=== PATIENT | male | born 1935 | race African-American/Black ===

== ENCOUNTER → 2017-02-10 | Outpatient (CLI) | payer OTHER, MEDICARE | END | disposition home or self-care (01) | LOC: NUC 01-27 11:00 | DX: C79.51 Secondary malignant neoplasm of bone (principal); R93.7 Abnormal findings on diagnostic imaging of other parts of musculoskeletal system; C61 Malignant neoplasm of prostate | CPT/HCPCS: 78306; A9503 ==

== ENCOUNTER 2017-08-07 04:11 | Inpatient (IN) | payer OTHER, MEDICARE ==
[~2017-08-07] VITALS: Ht 176.5 cm; Wt 70.1 kg
[2017-08-07] VITALS (14 sets, daily range): BP systolic 93–142; BP diastolic 56–99
[2017-08-07 04:51] LABS: APPEARANCE CLOUDY ((CLEAR)); BILIRUBIN NEGATIVE; BLOOD NEGATIVE; COLOR AMBER ((YELLOW)); GLUCOSE (STRIP) >=500; KETONES 5; LEUKOCYTES NEGATIVE; NITRITE NEGATIVE; PROTEIN (STRIP) 30; SPECIFIC GRAVITY 1.022 (1.000-1.030); UROBILINOGEN 0.2 MG/DL (0.2-1.0)
[2017-08-07 05:23] LABS: ALBUMIN 3.4 g/dL (3.2-4.8); CHLORIDE 98 mEq/L (99-109); SODIUM 143 mEq/L (136-147)
[2017-08-07 05:24] LABS: MAGNESIUM 2.2 mg/dL (1.3-2.7)
[2017-08-07 05:26] LABS: GLUCOSE 145 mg/dL (70-99); TOTAL PROTEIN 6.1 g/dL (6.4-8.3)
[2017-08-07 05:28] LABS: TOTAL BILIRUBIN 0.3 mg/dL (0.0-1.0)
[2017-08-07 05:29] LABS: ALKALINE PHOSPHATASE 62 IU/L (3-129)
[2017-08-07 05:30] LABS: CREATININE 0.7 mg/dL (0.6-1.3); GFR ESTIMATE (CALCULATED) > 59 mL/min/ (58.99-99999)
[2017-08-07 05:31] LABS: AST (GOT) 31 IU/L (2-34); UREA NITROGEN (BUN) 23 mg/dL (9-23)
[2017-08-07 05:33] LABS: ALT (GPT) 15 IU/L (3-49)
[2017-08-07 05:35] LABS: TROP-I INTERPRETATION NEGATIVE; TROPONIN-I 0.02 ng/mL (0.0-0.30)
[2017-08-07 05:39] LABS: BACTERIA 3+ /HPF; EPITHELIAL CELLS NONE SEEN /HPF; MUCUS NONE SEEN /LPF; UCUL ADDED? YES; WHITE BLOOD CELLS 0-5 /HPF (0-5)
[2017-08-07 06:18] LABS: CARBOXY HGB 0.9 % (0-5); METHEMOGLOBIN 0.7 % (0-1.5); PCO2 > 126 mm Hg (35-45); PO2 169 mm Hg (80-100)
[2017-08-07 06:19] LABS: COMMENTS - BLOOD GASES A+C+; DEVICE NC; O2 FLOW 4 L/MIN; SITE LR; TOTAL RESP RATE 22 resp/min; pH 7.13 (7.35-7.45)
[2017-08-07 06:28] LABS: BASOPHIL (%) 0.3 % (0-1); EOSINOPHIL (%) 0.1 % (0-5); HEMATOCRIT 35.2 % (38.0-50.0); HEMOGLOBIN 11.1 G/DL (12.5-16.6); IMMATURE GRANULOCYTE (%) 0.8 % (0.0-0.7); LYMPHOCYTE COUNT 0.5 K/uL (1.0-2.8); MCHC 31.5 G/DL (30.0-36.0); MCV 104.8 FL (86-99); MONOCYTE (%) 5.3 % (3-12); MONOCYTE COUNT 0.4 K/uL (0-0.8); NEUTROPHIL (%) 87.5 % (45-76); NEUTROPHIL COUNT 6.6 K/uL (1.8-6.4); PLATELET COUNT 134 K/uL (156-360); RBC DIS.WIDTH-CV 12.8 % (11.8-14.6); RBC DIS.WIDTH-SD 49.4 % (39-53); RED BLOOD COUNT 3.36 M/uL (4.00-5.50); WHITE BLOOD COUNT 7.5 K/uL (4.1-10.2)
[2017-08-07 07:30] LABS: BASE EXCESS 9.1 mEq/L (-3 to +3); BICARBONATE 39.6 mEq/L (22-26); CARBOXY HGB 0.5 % (0-5); METHEMOGLOBIN 0.8 % (0-1.5); PCO2 99 mm Hg (35-45); PO2 435 mm Hg (80-100); SITE RR; pH 7.21 (7.35-7.45)
[2017-08-07 07:31] LABS: COMMENTS - BLOOD GASES A+C+; DEVICE 980; FI02 100 %; MECHANICAL RATE 16 resp/min; MODE AC; PEEP 5 CM/H20; TIDAL VOLUME 500 ML; TOTAL RESP RATE 18 resp/min
[2017-08-07 07:32] LABS: INTER. NORMALIZED RATIO 0.9
[2017-08-07 07:35] LABS: PTT 28.7 SEC (25-37)
[2017-08-07] MEDS ORDERED: ACETAMINOPHEN-1 EAC3 PO (09:18)
[2017-08-07] MEDS ORDERED: ADVAIR HFA120 INHAL1 IH (09:18)
[2017-08-07] MEDS ORDERED: ASPIRIN81 M2 PO (09:19)
[2017-08-07] MEDS ORDERED: COREG3.125 M1 PO (09:20)
[2017-08-07] MEDS ORDERED: VITAMIN D31000 UNIT PO (09:20)
[2017-08-07] MEDS ORDERED: FAMOTIDINE20 MG PO (09:21)
[2017-08-07] MEDS ORDERED: FLOMAX0.4 MG PO (09:22)
[2017-08-07] MEDS ORDERED: DUONEB 2.5-0.5 M3 ML AEROSOL (09:24)
[2017-08-07] MEDS ORDERED: MONTELUKAST SOD10 MG PO (09:25)
[2017-08-07] MEDS ORDERED: LASIX40 MG PO (09:25)
[2017-08-07] MEDS ORDERED: MULTIVITAMIN1 EAC2 PO (09:26)
[2017-08-07] MEDS ORDERED: PREDNISONE5 MG PO (09:28)
[2017-08-07] MEDS ORDERED: SYMBICORT60 INHALAT IH (09:29)
[2017-08-07] MEDS ORDERED: SPIRIVA1 INHALATI IH (09:29)
[2017-08-07] MEDS ORDERED: VENTOLIN HFA18 GM IH (09:30)
[2017-08-07] MEDS ORDERED: GUAIFENESIN DM236 ML PO (09:33)
[2017-08-07 13:20] LABS: TRIGLYCERIDES 92 MG/DL (Normal: <150)
[2017-08-07 14:49] LABS: BASE EXCESS 7.5 mEq/L (-3 to +3); CARBOXY HGB 0.6 % (0-5); METHEMOGLOBIN 0.7 % (0-1.5)
[2017-08-07 14:50] LABS: BICARBONATE 31.1 mEq/L (22-26); COMMENTS - BLOOD GASES +A +C; PCO2 39 mm Hg (35-45); PO2 67 mm Hg (80-100); SITE RR; pH 7.51 (7.35-7.45)
[2017-08-07 14:51] LABS: DEVICE 980; FI02 30 %; MECHANICAL RATE 20 resp/min; MODE AC; PEEP 5 CM/H20; TIDAL VOLUME 500 ML; TOTAL RESP RATE 20 resp/min
[2017-08-07 16:25] LABS: BASE EXCESS 6.9 mEq/L (-3 to +3); BICARBONATE 31.3 mEq/L (22-26); CARBOXY HGB 0.6 % (0-5); PCO2 43 mm Hg (35-45); PO2 58 mm Hg (80-100); SITE LR; pH 7.47 (7.35-7.45)
[2017-08-07 16:26] LABS: COMMENTS - BLOOD GASES +A +C; DEVICE PB980; FI02 30 %; MECHANICAL RATE 17 resp/min; MODE AC; PEEP 5 CM/H20; TIDAL VOLUME 500 ML; TOTAL RESP RATE 17 resp/min
[2017-08-08] VITALS (24 sets, daily range): BP systolic 94–153; BP diastolic 58–84
[2017-08-08 05:15] LABS: HEMATOCRIT 27.8 % (38.0-50.0); HEMOGLOBIN 9.2 G/DL (12.5-16.6); MCH 32.6 PG (29.0-34.0); MCHC 33.1 G/DL (30.0-36.0); MCV 98.6 FL (86-99); PLATELET COUNT 129 K/uL (156-360); RBC DIS.WIDTH-CV 13.1 % (11.8-14.6); RED BLOOD COUNT 2.82 M/uL (4.00-5.50); WHITE BLOOD COUNT 5.1 K/uL (4.1-10.2)
[2017-08-08 05:34] LABS: CHLORIDE 100 MEQ/L (99-109); CREATININE 0.8 MG/DL (0.6-1.3); GFR ESTIMATE (CALCULATED) > 59 mL/min/ (58.99-99999); GLUCOSE 120 mg/dL (70-99); SODIUM 137 MEQ/L (136-147); UREA NITROGEN (BUN) 24 mg/dL (9-23)
[2017-08-08 05:47] LABS: POTASSIUM 3.1 MEQ/L (3.7-5.4)
[2017-08-08 09:51] LABS: BASE EXCESS 8.9 mEq/L (-3 to +3); BICARBONATE 34.1 mEq/L (22-26); CARBOXY HGB 0.4 % (0-5); COMMENTS - BLOOD GASES +C; DEVICE PB980; FI02 30 %; MECHANICAL RATE 15 resp/min; MODE AC; PCO2 49 mm Hg (35-45); PEEP 5 CM/H20; PO2 67 mm Hg (80-100); SITE LR +A; TIDAL VOLUME 500 ML; TOTAL RESP RATE 15 resp/min; pH 7.45 (7.35-7.45)
[2017-08-08 11:00] LABS: BASE EXCESS 10.6 mEq/L (-3 to +3); BICARBONATE 36.5 mEq/L (22-26); CARBOXY HGB 0.4 % (0-5); METHEMOGLOBIN 1.2 % (0-1.5); PO2 66 mm Hg (80-100); pH 7.43 (7.35-7.45)
[2017-08-08 11:01] LABS: COMMENTS - BLOOD GASES +C; DEVICE PB980; FI02 30 %; MODE SPONT; PCO2 55 mm Hg (35-45); PRES. SUPPORT 5 CM/H2O; SITE RR +A; TOTAL RESP RATE 21 resp/min
[2017-08-08 11:02] LABS: PEEP 5 CM/H20
[2017-08-09] VITALS (24 sets, daily range): BP systolic 107–163; BP diastolic 59–99
[2017-08-09 05:00] LABS: BASOPHIL (%) 0.3 % (0-1); EOSINOPHIL (%) 0 % (0-5); HEMATOCRIT 32.5 % (38.0-50.0); HEMOGLOBIN 10.6 G/DL (12.5-16.6); IMMATURE GRANULOCYTE (%) 0.3 % (0.0-0.7); LYMPHOCYTE (%) 13.5 % (15-42); LYMPHOCYTE COUNT 0.9 K/uL (1.0-2.8); MCH 33.4 PG (29.0-34.0); MCHC 32.6 G/DL (30.0-36.0); MCV 102.5 FL (86-99); MONOCYTE (%) 9.1 % (3-12); MONOCYTE COUNT 0.6 K/uL (0-0.8); NEUTROPHIL (%) 76.8 % (45-76); NEUTROPHIL COUNT 5.2 K/uL (1.8-6.4); PLATELET COUNT 155 K/uL (156-360); RBC DIS.WIDTH-CV 13.7 % (11.8-14.6); RBC DIS.WIDTH-SD 51.2 % (39-53); RED BLOOD COUNT 3.17 M/uL (4.00-5.50); WHITE BLOOD COUNT 6.8 K/uL (4.1-10.2)
[2017-08-09 06:25] LABS: CHLORIDE 107 MEQ/L (99-109); CREATININE 0.9 MG/DL (0.6-1.3); GFR ESTIMATE (CALCULATED) > 59 mL/min/ (58.99-99999); GLUCOSE 89 mg/dL (70-99); MAGNESIUM 2.2 mg/dl (1.3-2.7); PHOSPHORUS 2.4 mg/dL (2.5-4.9); POTASSIUM 3.6 MEQ/L (3.7-5.4); SODIUM 152 MEQ/L (136-147); UREA NITROGEN (BUN) 23 mg/dL (9-23)
[2017-08-09 13:10] LABS: BASE EXCESS 14.9 mEq/L (-3 to +3); BICARBONATE 43.5 mEq/L (22-26); CARBOXY HGB 1.1 % (0-5); DEVICE CANNULA; METHEMOGLOBIN 1.3 % (0-1.5); O2 FLOW 1 L/MIN; PCO2 77 mm Hg (35-45); PO2 47 mm Hg (80-100); SITE LR; pH 7.36 (7.35-7.45)
[2017-08-09 13:11] LABS: COMMENTS - BLOOD GASES NAC+; TOTAL RESP RATE 26 resp/min
[2017-08-10] VITALS (23 sets, daily range): BP systolic 124–161; BP diastolic 66–112
[2017-08-10 05:54] LABS: BASOPHIL (%) 0.2 % (0-1); EOSINOPHIL (%) 0 % (0-5); HEMATOCRIT 34.6 % (38.0-50.0); IMMATURE GRANULOCYTE (%) 0.9 % (0.0-0.7); LYMPHOCYTE (%) 6.8 % (15-42); LYMPHOCYTE COUNT 0.4 K/uL (1.0-2.8); MCH 31.7 PG (29.0-34.0); MCHC 31.8 G/DL (30.0-36.0); MCV 99.7 FL (86-99); MONOCYTE (%) 2.4 % (3-12); MONOCYTE COUNT 0.1 K/uL (0-0.8); NEUTROPHIL (%) 89.7 % (45-76); NEUTROPHIL COUNT 5.2 K/uL (1.8-6.4); PLATELET COUNT 196 K/uL (156-360); RBC DIS.WIDTH-CV 13.2 % (11.8-14.6); RBC DIS.WIDTH-SD 48.6 % (39-53); RED BLOOD COUNT 3.47 M/uL (4.00-5.50); WHITE BLOOD COUNT 5.7 K/uL (4.1-10.2)
[2017-08-10 06:11] LABS: CHLORIDE 97 MEQ/L (99-109); CREATININE 0.9 MG/DL (0.6-1.3); GFR ESTIMATE (CALCULATED) > 59 mL/min/ (58.99-99999); POTASSIUM 3.3 MEQ/L (3.7-5.4); SODIUM 147 MEQ/L (136-147); UREA NITROGEN (BUN) 27 mg/dL (9-23)
[2017-08-10 06:13] LABS: GLUCOSE 145 mg/dL (70-99)
[2017-08-11] VITALS (12 sets, daily range): BP systolic 115–145; BP diastolic 69–97
[2017-08-11] MEDS ORDERED: TYLENOL WITH C1 EACH PO (12:31)
[2017-08-11] MEDS ORDERED: COLACE100 MG PO (12:33)
[2017-08-11] MEDS ORDERED: ZYTIGA250 MG PO (12:34)
[2017-08-12 06:48] LABS: BASOPHIL (%) 0.1 % (0-1); EOSINOPHIL (%) 0 % (0-5); HEMATOCRIT 34.1 % (38.0-50.0); HEMOGLOBIN 10.9 G/DL (12.5-16.6); LYMPHOCYTE (%) 5.1 % (15-42); LYMPHOCYTE COUNT 0.3 K/uL (1.0-2.8); MCH 33.4 PG (29.0-34.0); MONOCYTE (%) 3.7 % (3-12); MONOCYTE COUNT 0.3 K/uL (0-0.8); NEUTROPHIL (%) 90.1 % (45-76); PLATELET COUNT 196 K/uL (156-360); RBC DIS.WIDTH-CV 13.2 % (11.8-14.6); RBC DIS.WIDTH-SD 51.2 % (39-53); RED BLOOD COUNT 3.26 M/uL (4.00-5.50); WHITE BLOOD COUNT 6.7 K/uL (4.1-10.2)
[2017-08-12 06:49] LABS: MCV 104.6 FL (86-99)
[2017-08-12 07:16] LABS: CHLORIDE 96 MEQ/L (99-109); CREATININE 0.9 MG/DL (0.6-1.3); GFR ESTIMATE (CALCULATED) > 59 mL/min/ (58.99-99999); GLUCOSE 197 mg/dL (70-99); SODIUM 149 MEQ/L (136-147); UREA NITROGEN (BUN) 22 mg/dL (9-23)
[2017-08-12 07:27] LABS: CARBON DIOXIDE (BICARBONATE) > 40.0 MEQ/L (20-31); POTASSIUM 4.3 MEQ/L (3.7-5.4)
[2017-08-12 07:44] VITALS: BP 129/70
[2017-08-12 16:07] VITALS: BP 134/73
[2017-08-12 21:15] LABS: BASE EXCESS 22.8 mEq/L (-3 to +3); BICARBONATE 52.5 mEq/L (22-26); CARBOXY HGB 0.8 % (0-5); COMMENTS - BLOOD GASES A+C+; METHEMOGLOBIN 1.3 % (0-1.5); O2 FLOW 2 L/MIN; PCO2 93 mm Hg (35-45); PO2 71 mm Hg (80-100); SITE RA; pH 7.36 (7.35-7.45)
[2017-08-12 21:16] LABS: PEEP 5 CM/H20; PRES. SUPPORT 13 CM/H2O; TOTAL RESP RATE 24 resp/min
[2017-08-13 00:05] VITALS: BP 136/85
[2017-08-13 04:29] VITALS: BP 116/69
[2017-08-13 06:53] LABS: HEMATOCRIT 33.2 % (38.0-50.0); HEMOGLOBIN 10.2 G/DL (12.5-16.6); MCH 32.3 PG (29.0-34.0); MCHC 30.7 G/DL (30.0-36.0); MCV 105.1 FL (86-99); PLATELET COUNT 214 K/uL (156-360); RBC DIS.WIDTH-CV 13.2 % (11.8-14.6); RBC DIS.WIDTH-SD 50.8 % (39-53); RED BLOOD COUNT 3.16 M/uL (4.00-5.50); WHITE BLOOD COUNT 7.1 K/uL (4.1-10.2)
[2017-08-13 07:26] LABS: BASOPHIL (%) 0.3 % (0-1); CHLORIDE 99 MEQ/L (99-109); CREATININE 0.8 MG/DL (0.6-1.3); EOSINOPHIL (%) 0 % (0-5); GFR ESTIMATE (CALCULATED) > 59 mL/min/ (58.99-99999); GLUCOSE 149 mg/dL (70-99); LYMPHOCYTE (%) 5.5 % (15-42); LYMPHOCYTE COUNT 0.4 K/uL (1.0-2.8); MONOCYTE COUNT 0.4 K/uL (0-0.8); NEUTROPHIL (%) 86.2 % (45-76); NEUTROPHIL COUNT 6.1 K/uL (1.8-6.4); POTASSIUM 4.9 MEQ/L (3.7-5.4); SODIUM 150 MEQ/L (136-147); UREA NITROGEN (BUN) 17 mg/dL (9-23)
[2017-08-13 07:29] LABS: CARBON DIOXIDE (BICARBONATE) > 40.0 MEQ/L (20-31)
[2017-08-13 07:38] VITALS: BP 140/67
[2017-08-13 15:31] VITALS: BP 152/72
[2017-08-13 19:10] LABS: UR CREATININE CONCENTRATION 163.2 MG/DL
[2017-08-13 22:55] VITALS: BP 133/72
[2017-08-14] VITALS (9 sets, daily range): BP systolic 83–170; BP diastolic 54–83
[2017-08-14 06:43] LABS: BASOPHIL (%) 0.3 % (0-1); EOSINOPHIL (%) 0 % (0-5); IMMATURE GRANULOCYTE (%) 3.1 % (0.0-0.7); LYMPHOCYTE COUNT 0.6 K/uL (1.0-2.8); MCH 32.5 PG (29.0-34.0); MCHC 30.3 G/DL (30.0-36.0); MCV 107.1 FL (86-99); MONOCYTE (%) 6.5 % (3-12); MONOCYTE COUNT 0.5 K/uL (0-0.8); NEUTROPHIL (%) 83.1 % (45-76); NEUTROPHIL COUNT 6.6 K/uL (1.8-6.4); NRBC (%) 0.3 /100 WBC (0-0); PLATELET COUNT 202 K/uL (156-360); RBC DIS.WIDTH-CV 13.4 % (11.8-14.6); RBC DIS.WIDTH-SD 52.9 % (39-53); RED BLOOD COUNT 3.08 M/uL (4.00-5.50)
[2017-08-14 07:26] LABS: CHLORIDE 97 MEQ/L (99-109); CREATININE 0.7 MG/DL (0.6-1.3); GFR ESTIMATE (CALCULATED) > 59 mL/min/ (58.99-99999); GLUCOSE 112 mg/dL (70-99); MAGNESIUM 2.5 mg/dl (1.3-2.7); PHOSPHORUS 2.7 mg/dL (2.5-4.9); POTASSIUM 4.3 MEQ/L (3.7-5.4); SODIUM 148 MEQ/L (136-147); UREA NITROGEN (BUN) 15 mg/dL (9-23)
[2017-08-14 07:46] LABS: CARBON DIOXIDE (BICARBONATE) > 40.0 MEQ/L (20-31)
[2017-08-14 13:57] LABS: BASE EXCESS 23.8 mEq/L (-3 to +3); CARBOXY HGB 1.6 % (0-5); METHEMOGLOBIN 1.1 % (0-1.5); PO2 65 mm Hg (80-100); pH 7.34 (7.35-7.45)
[2017-08-14 13:58] LABS: COMMENTS - BLOOD GASES C+; DEVICE NC; O2 FLOW 1.5 L/MIN; PCO2 100 mm Hg (35-45); SITE RR; TOTAL RESP RATE 18 resp/min
[2017-08-14 16:25] LABS: BASE EXCESS 22.2 mEq/L (-3 to +3); BICARBONATE 52.6 mEq/L (22-26); CARBOXY HGB 1.7 % (0-5); METHEMOGLOBIN 1.4 % (0-1.5); PCO2 102 mm Hg (35-45); PO2 53 mm Hg (80-100); pH 7.32 (7.35-7.45)
[2017-08-14 16:26] LABS: COMMENTS - BLOOD GASES A+C+; CONTINUOUS POS AIRWAY PRESSURE 5 cm H2O; DEVICE BIPAP; O2 FLOW 10 L/MIN; PRES. SUPPORT 10 CM/H2O; SITE RR
[2017-08-14 18:14] LABS: BASE EXCESS 21.9 mEq/L (-3 to +3); BICARBONATE 50.2 mEq/L (22-26); CARBOXY HGB 0.7 % (0-5); METHEMOGLOBIN 1.1 % (0-1.5); PCO2 81 mm Hg (35-45)
[2017-08-14 18:15] LABS: COMMENTS - BLOOD GASES NA C+; DEVICE VENT; FI02 100 %; MECHANICAL RATE 10 resp/min; MODE AC; PEEP 8 CM/H20; PO2 292 mm Hg (80-100); SITE RR; TIDAL VOLUME 600 ML; TOTAL RESP RATE 20 resp/min
[2017-08-14 19:27] LABS: ALBUMIN 2.6 G/DL (3.2-4.8); ALKALINE PHOSPHATASE 41 IU/L (3-129); ALT (GPT) 16 IU/L (3-49); AST (GOT) 15 IU/L (2-34); BASOPHIL (%) 0.2 % (0-1); CHLORIDE 93 MEQ/L (99-109); CREATININE 0.6 MG/DL (0.6-1.3); EOSINOPHIL (%) 0 % (0-5); GFR ESTIMATE (CALCULATED) > 59 mL/min/ (58.99-99999); HEMATOCRIT 27.7 % (38.0-50.0); HEMOGLOBIN 8.7 G/DL (12.5-16.6); IMMATURE GRANULOCYTE (%) 3.3 % (0.0-0.7); LYMPHOCYTE (%) 5.1 % (15-42); LYMPHOCYTE COUNT 0.3 K/uL (1.0-2.8); MCH 32.3 PG (29.0-34.0); MCHC 31.4 G/DL (30.0-36.0); MONOCYTE (%) 3.6 % (3-12); MONOCYTE COUNT 0.2 K/uL (0-0.8); NEUTROPHIL (%) 87.8 % (45-76); NEUTROPHIL COUNT 5.4 K/uL (1.8-6.4); PLATELET COUNT 166 K/uL (156-360); POTASSIUM 4.2 MEQ/L (3.7-5.4); RBC DIS.WIDTH-CV 13.2 % (11.8-14.6); RBC DIS.WIDTH-SD 49.6 % (39-53); RED BLOOD COUNT 2.69 M/uL (4.00-5.50); SODIUM 141 MEQ/L (136-147); TOTAL BILIRUBIN 0.3 MG/DL (0.0-1.0); TOTAL PROTEIN 4.9 G/DL (6.4-8.3); UREA NITROGEN (BUN) 18 mg/dL (9-23); WHITE BLOOD COUNT 6.1 K/uL (4.1-10.2)
[2017-08-14 19:30] LABS: GLUCOSE 327 mg/dL (70-99)
[2017-08-14 19:31] LABS: CARBON DIOXIDE (BICARBONATE) > 40.0 MEQ/L (20-31)
[2017-08-15] VITALS (24 sets, daily range): BP systolic 70–166; BP diastolic 39–94
[2017-08-15 05:37] LABS: BASOPHIL (%) 0.3 % (0-1); EOSINOPHIL (%) 0 % (0-5); HEMATOCRIT 26.6 % (38.0-50.0); HEMOGLOBIN 8.6 G/DL (12.5-16.6); LYMPHOCYTE COUNT 0.3 K/uL (1.0-2.8); MCH 32.5 PG (29.0-34.0); MCHC 32.3 G/DL (30.0-36.0); MCV 100.4 FL (86-99); MONOCYTE (%) 4.8 % (3-12); MONOCYTE COUNT 0.4 K/uL (0-0.8); NEUTROPHIL (%) 87.9 % (45-76); NEUTROPHIL COUNT 6.4 K/uL (1.8-6.4); NRBC (%) 0.3 /100 WBC (0-0); PLATELET COUNT 162 K/uL (156-360); RBC DIS.WIDTH-CV 13.2 % (11.8-14.6); RBC DIS.WIDTH-SD 48.6 % (39-53); RED BLOOD COUNT 2.65 M/uL (4.00-5.50); WHITE BLOOD COUNT 7.3 K/uL (4.1-10.2)
[2017-08-15 06:01] LABS: CHLORIDE 98 MEQ/L (99-109); CREATININE 0.7 MG/DL (0.6-1.3); GFR ESTIMATE (CALCULATED) > 59 mL/min/ (58.99-99999); POTASSIUM 4.1 MEQ/L (3.7-5.4); SODIUM 142 MEQ/L (136-147); UREA NITROGEN (BUN) 17 mg/dL (9-23)
[2017-08-15 06:02] LABS: GLUCOSE 137 mg/dL (70-99)
[2017-08-15 12:54] LABS: APPEARANCE CLEAR ((CLEAR)); BILIRUBIN NEGATIVE; BLOOD NEGATIVE; COLOR YELLOW ((YELLOW)); GLUCOSE (STRIP) 50; KETONES 5; LEUKOCYTES NEGATIVE; NITRITE NEGATIVE; PROTEIN (STRIP) NEGATIVE; SPECIFIC GRAVITY 1.011 (1.000-1.030); UCUL ADDED? NO; UROBILINOGEN 0.2 MG/DL (0.2-1.0)
[2017-08-16] VITALS (21 sets, daily range): BP systolic 71–178; BP diastolic 52–96
[2017-08-17] VITALS (24 sets, daily range): BP systolic 99–152; BP diastolic 55–94
[2017-08-17 05:14] LABS: BASOPHIL (%) 0.2 % (0-1); EOSINOPHIL (%) 0 % (0-5); HEMATOCRIT 26.7 % (38.0-50.0); HEMOGLOBIN 8.7 G/DL (12.5-16.6); IMMATURE GRANULOCYTE (%) 2.6 % (0.0-0.7); LYMPHOCYTE (%) 3.5 % (15-42); LYMPHOCYTE COUNT 0.4 K/uL (1.0-2.8); MCH 33.3 PG (29.0-34.0); MCHC 32.6 G/DL (30.0-36.0); MCV 102.3 FL (86-99); MONOCYTE (%) 5.4 % (3-12); MONOCYTE COUNT 0.6 K/uL (0-0.8); NEUTROPHIL (%) 88.3 % (45-76); NEUTROPHIL COUNT 9.2 K/uL (1.8-6.4); NRBC (%) 0.8 /100 WBC (0-0); PLATELET COUNT 160 K/uL (156-360); RBC DIS.WIDTH-CV 15.3 % (11.8-14.6); RBC DIS.WIDTH-SD 55.7 % (39-53); RED BLOOD COUNT 2.61 M/uL (4.00-5.50); WHITE BLOOD COUNT 10.4 K/uL (4.1-10.2)
[2017-08-17 05:31] LABS: BASE EXCESS 15.9 mEq/L (-3 to +3); BICARBONATE 40.7 mEq/L (22-26); CARBOXY HGB 0.5 % (0-5); METHEMOGLOBIN 1.1 % (0-1.5); PCO2 51 mm Hg (35-45); PO2 86 mm Hg (80-100); SITE RR; pH 7.51 (7.35-7.45)
[2017-08-17 05:32] LABS: COMMENTS - BLOOD GASES C+; DEVICE VENT; FI02 30 %; MECHANICAL RATE 10 resp/min; MODE AC; PEEP 8 CM/H20; TIDAL VOLUME 600 ML; TOTAL RESP RATE 12 resp/min
[2017-08-17 05:40] LABS: CHLORIDE 102 MEQ/L (99-109); CREATININE 0.9 MG/DL (0.6-1.3); GFR ESTIMATE (CALCULATED) > 59 mL/min/ (58.99-99999); GLUCOSE 203 mg/dL (70-99); SODIUM 145 MEQ/L (136-147); UREA NITROGEN (BUN) 22 mg/dL (9-23)
[2017-08-18] VITALS (24 sets, daily range): BP systolic 81–133; BP diastolic 45–81
[2017-08-18 05:15] LABS: BASE EXCESS 9.3 mEq/L (-3 to +3); BICARBONATE 34.6 mEq/L (22-26); CARBOXY HGB 0.7 % (0-5); METHEMOGLOBIN 1.2 % (0-1.5); PCO2 51 mm Hg (35-45); PO2 91 mm Hg (80-100); pH 7.44 (7.35-7.45)
[2017-08-18 05:16] LABS: COMMENTS - BLOOD GASES C+; DEVICE VENT; FI02 30 %; MECHANICAL RATE 10 resp/min; MODE AC; PEEP 8 CM/H20; SITE LB; TIDAL VOLUME 600 ML; TOTAL RESP RATE 16 resp/min
[2017-08-18 07:28] LABS: CHLORIDE 107 MEQ/L (99-109); CREATININE 0.9 MG/DL (0.6-1.3); GFR ESTIMATE (CALCULATED) > 59 mL/min/ (58.99-99999); GLUCOSE 181 mg/dL (70-99); PHOSPHORUS 3.3 mg/dL (2.5-4.9); SODIUM 146 MEQ/L (136-147); UREA NITROGEN (BUN) 22 mg/dL (9-23)
[2017-08-19] VITALS (24 sets, daily range): BP systolic 77–140; BP diastolic 44–68
[2017-08-20] VITALS (25 sets, daily range): BP systolic 90–167; BP diastolic 53–91
[2017-08-20 08:17] LABS: BASOPHIL (%) 0.1 % (0-1); EOSINOPHIL (%) 0.3 % (0-5); HEMATOCRIT 25.3 % (38.0-50.0); HEMOGLOBIN 8.1 G/DL (12.5-16.6); IMMATURE GRANULOCYTE (%) 1.6 % (0.0-0.7); LYMPHOCYTE (%) 6.3 % (15-42); LYMPHOCYTE COUNT 0.6 K/uL (1.0-2.8); MCH 33.6 PG (29.0-34.0); MONOCYTE (%) 5.9 % (3-12); MONOCYTE COUNT 0.5 K/uL (0-0.8); NEUTROPHIL (%) 85.8 % (45-76); NEUTROPHIL COUNT 7.8 K/uL (1.8-6.4); NRBC (%) 0.2 /100 WBC (0-0); PLATELET COUNT 161 K/uL (156-360); RBC DIS.WIDTH-CV 16.7 % (11.8-14.6); RBC DIS.WIDTH-SD 63.2 % (39-53); RED BLOOD COUNT 2.41 M/uL (4.00-5.50); WHITE BLOOD COUNT 9.1 K/uL (4.1-10.2)
[2017-08-20 08:38] LABS: CHLORIDE 109 MEQ/L (99-109); CREATININE 0.8 MG/DL (0.6-1.3); GFR ESTIMATE (CALCULATED) > 59 mL/min/ (58.99-99999); GLUCOSE 140 mg/dL (70-99); INTER. NORMALIZED RATIO 0.9; SODIUM 145 MEQ/L (136-147); UREA NITROGEN (BUN) 20 mg/dL (9-23)
[2017-08-20 08:40] LABS: PTT 26.7 SEC (25-37)
[2017-08-21] VITALS (24 sets, daily range): BP systolic 84–122; BP diastolic 47–80
[2017-08-21 05:45] LABS: BASE EXCESS 10.8 mEq/L (-3 to +3); BICARBONATE 35.7 mEq/L (22-26); CARBOXY HGB 1.7 % (0-5); COMMENTS - BLOOD GASES C+; DEVICE VENT; FI02 30 %; METHEMOGLOBIN 1.2 % (0-1.5); MODE ACVC; PCO2 49 mm Hg (35-45); PO2 70 mm Hg (80-100); SITE LR; pH 7.47 (7.35-7.45)
[2017-08-21 05:46] LABS: MECHANICAL RATE 12 resp/min; PEEP 5 CM/H20; TIDAL VOLUME 600 ML; TOTAL RESP RATE 15 resp/min
[2017-08-21 05:58] LABS: BASOPHIL (%) 0.1 % (0-1); EOSINOPHIL (%) 0 % (0-5); HEMATOCRIT 26.3 % (38.0-50.0); HEMOGLOBIN 8.5 G/DL (12.5-16.6); IMMATURE GRANULOCYTE (%) 1.5 % (0.0-0.7); LYMPHOCYTE (%) 4.8 % (15-42); LYMPHOCYTE COUNT 0.6 K/uL (1.0-2.8); MCH 33.1 PG (29.0-34.0); MCHC 32.3 G/DL (30.0-36.0); MCV 102.3 FL (86-99); MONOCYTE (%) 5.1 % (3-12); MONOCYTE COUNT 0.6 K/uL (0-0.8); NEUTROPHIL (%) 88.5 % (45-76); NEUTROPHIL COUNT 10.2 K/uL (1.8-6.4); PLATELET COUNT 158 K/uL (156-360); RBC DIS.WIDTH-CV 16.3 % (11.8-14.6); RBC DIS.WIDTH-SD 59.7 % (39-53); RED BLOOD COUNT 2.57 M/uL (4.00-5.50); WHITE BLOOD COUNT 11.6 K/uL (4.1-10.2)
[2017-08-21 06:58] LABS: CHLORIDE 105 MEQ/L (99-109); CREATININE 0.8 MG/DL (0.6-1.3); GFR ESTIMATE (CALCULATED) > 59 mL/min/ (58.99-99999); GLUCOSE 144 mg/dL (70-99); PHOSPHORUS 3.4 mg/dL (2.5-4.9); POTASSIUM 4.2 MEQ/L (3.7-5.4); SODIUM 144 MEQ/L (136-147); UREA NITROGEN (BUN) 20 mg/dL (9-23)
[2017-08-22] VITALS (21 sets, daily range): BP systolic 86–128; BP diastolic 47–76
[2017-08-22 05:40] LABS: BASOPHIL (%) 0.1 % (0-1); EOSINOPHIL (%) 1.5 % (0-5); EOSINOPHIL COUNT 0.1 K/uL (0-0.3); HEMATOCRIT 25.6 % (38.0-50.0); HEMOGLOBIN 8.3 G/DL (12.5-16.6); IMMATURE GRANULOCYTE (%) 1.2 % (0.0-0.7); LYMPHOCYTE (%) 10.9 % (15-42); LYMPHOCYTE COUNT 0.8 K/uL (1.0-2.8); MCH 33.6 PG (29.0-34.0); MCHC 32.4 G/DL (30.0-36.0); MCV 103.6 FL (86-99); MONOCYTE (%) 7.4 % (3-12); MONOCYTE COUNT 0.5 K/uL (0-0.8); NEUTROPHIL (%) 78.9 % (45-76); NEUTROPHIL COUNT 5.7 K/uL (1.8-6.4); PLATELET COUNT 149 K/uL (156-360); RBC DIS.WIDTH-CV 16.8 % (11.8-14.6); RBC DIS.WIDTH-SD 63.1 % (39-53); RED BLOOD COUNT 2.47 M/uL (4.00-5.50); WHITE BLOOD COUNT 7.3 K/uL (4.1-10.2)
[2017-08-22 06:07] LABS: CHLORIDE 105 MEQ/L (99-109); CREATININE 0.7 MG/DL (0.6-1.3); GFR ESTIMATE (CALCULATED) > 59 mL/min/ (58.99-99999); GLUCOSE 117 mg/dL (70-99); PHOSPHORUS 3.4 mg/dL (2.5-4.9); POTASSIUM 3.9 MEQ/L (3.7-5.4); SODIUM 144 MEQ/L (136-147); UREA NITROGEN (BUN) 21 mg/dL (9-23)
[2017-08-23] VITALS (23 sets, daily range): BP systolic 95–135; BP diastolic 52–81
[2017-08-23 06:04] LABS: BASOPHIL (%) 0 % (0-1); EOSINOPHIL (%) 1.2 % (0-5); EOSINOPHIL COUNT 0.1 K/uL (0-0.3); HEMATOCRIT 26.5 % (38.0-50.0); HEMOGLOBIN 8.5 G/DL (12.5-16.6); IMMATURE GRANULOCYTE (%) 0.9 % (0.0-0.7); LYMPHOCYTE (%) 7.8 % (15-42); LYMPHOCYTE COUNT 0.6 K/uL (1.0-2.8); MCH 33.6 PG (29.0-34.0); MCHC 32.1 G/DL (30.0-36.0); MCV 104.7 FL (86-99); MONOCYTE (%) 7.6 % (3-12); MONOCYTE COUNT 0.6 K/uL (0-0.8); NEUTROPHIL (%) 82.5 % (45-76); NEUTROPHIL COUNT 6.4 K/uL (1.8-6.4); PLATELET COUNT 143 K/uL (156-360); RBC DIS.WIDTH-CV 16.6 % (11.8-14.6); RED BLOOD COUNT 2.53 M/uL (4.00-5.50); WHITE BLOOD COUNT 7.7 K/uL (4.1-10.2)
[2017-08-23 07:38] LABS: CHLORIDE 104 MEQ/L (99-109); CREATININE 0.7 MG/DL (0.6-1.3); GFR ESTIMATE (CALCULATED) > 59 mL/min/ (58.99-99999); GLUCOSE 126 mg/dL (70-99); PHOSPHORUS 3.6 mg/dL (2.5-4.9); SODIUM 142 MEQ/L (136-147); UREA NITROGEN (BUN) 18 mg/dL (9-23)
[2017-08-24] VITALS (11 sets, daily range): BP systolic 90–122; BP diastolic 48–67
[2017-08-24 05:49] LABS: BASOPHIL (%) 0.1 % (0-1); EOSINOPHIL (%) 1.1 % (0-5); EOSINOPHIL COUNT 0.1 K/uL (0-0.3); HEMATOCRIT 24.2 % (38.0-50.0); HEMOGLOBIN 7.7 G/DL (12.5-16.6); IMMATURE GRANULOCYTE (%) 0.5 % (0.0-0.7); LYMPHOCYTE (%) 8.9 % (15-42); LYMPHOCYTE COUNT 0.7 K/uL (1.0-2.8); MCHC 31.8 G/DL (30.0-36.0); MCV 103.9 FL (86-99); MONOCYTE (%) 6.8 % (3-12); MONOCYTE COUNT 0.5 K/uL (0-0.8); NEUTROPHIL (%) 82.6 % (45-76); NEUTROPHIL COUNT 6.1 K/uL (1.8-6.4); PLATELET COUNT 151 K/uL (156-360); RBC DIS.WIDTH-CV 15.9 % (11.8-14.6); RBC DIS.WIDTH-SD 60.1 % (39-53); RED BLOOD COUNT 2.33 M/uL (4.00-5.50); WHITE BLOOD COUNT 7.4 K/uL (4.1-10.2)
[2017-08-24 06:11] LABS: CHLORIDE 103 MEQ/L (99-109); CREATININE 0.7 MG/DL (0.6-1.3); GFR ESTIMATE (CALCULATED) > 59 mL/min/ (58.99-99999); GLUCOSE 111 mg/dL (70-99); MAGNESIUM 1.9 mg/dl (1.3-2.7); PHOSPHORUS 3.5 mg/dL (2.5-4.9); POTASSIUM 4.3 MEQ/L (3.7-5.4); SODIUM 142 MEQ/L (136-147); UREA NITROGEN (BUN) 15 mg/dL (9-23)
[2017-08-24] MEDS ORDERED: SPIRIVA RESPIMAT4 GM IH (11:51)
== END 2017-08-24 14:53 | disposition designated cancer center or children's hospital (05) | DRG 4 ==
LOC: EME → EDBD 04:11 → EME 04:11 → 4WEST 10:25 → EDOF 10:25 → ENRESERV 10:31 → EDOF 10:44 → 4WEST 11:20 → ENRESERV 08-11 13:14 → 5EAST 08-11 17:00 → ENRESERV 08-14 14:20 → 5EAST 08-14 14:21 → 4EAST 08-14 15:09 → ENRESERV 08-14 16:35 → 4WEST 08-14 16:36
PROVIDERS: Emergency Medicine; Internal Medicine; Internal Medicine Critical Care Medicine; Internal Medicine Nephrology; Specialist; Surgery
PROC: 5A1935Z Respiratory Ventilation, Less than 24 Consecutive Hours (ICD-10-PCS; principal; 2017-08-07)
PROC: 0BH17EZ Insertion of Endotracheal Airway into Trachea, Via Natural or Artificial Opening (ICD-10-PCS; principal; 2017-08-07)
PROC: 5A1955Z Respiratory Ventilation, Greater than 96 Consecutive Hours (ICD-10-PCS; 2017-08-14)
PROC: 02HV33Z Insertion of Infusion Device into Superior Vena Cava, Percutaneous Approach (ICD-10-PCS; 2017-08-14)
PROC: 0BH17EZ Insertion of Endotracheal Airway into Trachea, Via Natural or Artificial Opening (ICD-10-PCS; 2017-08-14)
PROC: 0DH63UZ Insertion of Feeding Device into Stomach, Percutaneous Approach (ICD-10-PCS; 2017-08-20)
PROC: 0B110F4 Bypass Trachea to Cutaneous with Tracheostomy Device, Open Approach (ICD-10-PCS; 2017-08-20)
DX: J96.22 Acute and chronic respiratory failure with hypercapnia (principal); J18.9 Pneumonia, unspecified organism; J44.1 Chronic obstructive pulmonary disease with (acute) exacerbation; J96.21 Acute and chronic respiratory failure with hypoxia; J44.0 Chronic obstructive pulmonary disease with (acute) lower respiratory infection; Z99.81 Dependence on supplemental oxygen; I48.91 Unspecified atrial fibrillation; C61 Malignant neoplasm of prostate; C79.51 Secondary malignant neoplasm of bone; D63.8 Anemia in other chronic diseases classified elsewhere; I50.9 Heart failure, unspecified; I11.0 Hypertensive heart disease with heart failure; I27.29 Other secondary pulmonary hypertension; I27.81 Cor pulmonale (chronic); E87.6 Hypokalemia; D69.6 Thrombocytopenia, unspecified; N39.0 Urinary tract infection, site not specified; B96.1 Klebsiella pneumoniae [K. pneumoniae] as the cause of diseases classified elsewhere; R73.9 Hyperglycemia, unspecified; Z87.891 Personal history of nicotine dependence; E87.0 Hyperosmolality and hypernatremia; R13.10 Dysphagia, unspecified; J20.9 Acute bronchitis, unspecified; Z91.19 Patient's noncompliance with other medical treatment and regimen; J98.11 Atelectasis; E87.4 Mixed disorder of acid-base balance
CPT/HCPCS: 36600; 71045; 74230; 80048; 80053; 80202; 81003; 82330; 82570; 82803; 82948; 83605; 83735; 83880; 83930; 83935; 84100; 84156; 84300; 84478; 84484; 85025; 85025 91; 85025 GA; 85027; 85379; 85610; 85730; 87040; 87070; 87077; 87086; 87106; 87186; 87205; 87641; 92526 GN; 92610 GN; 92611 GN; 93005; 93306; 93970; 93971; 94002; 94003; 94640; 94640 76; 94660; 94667; 94668; 94760; 94799; 97530 GP; 99202; 99281; 99285; C1751; C1753; C9113; J0295; J0330; J0456; J0690; J0692; J0696; J1100; J1120; J1644; J1815; J1940; J2060; J2250; J2270; J2704; J2920; J2930; J3010; J3370; J3475; J3480; J7030; J7040; J7050; J7070; J7120; J7512; J7644; S0028; S0074

== ENCOUNTER 2017-09-18 13:46 | Inpatient (IN) | payer OTHER, MEDICARE ==
[~2017-09-18] VITALS: Ht 157.5 cm; Wt 180.0 kg
[~2017-09-18 13:46] MED LIST: ACETAMINOPHEN-1 EAC3 PO; ADVAIR HFA120 INHAL1 IH; ASPIRIN81 M2 PO; COLACE100 MG PO; COREG3.125 M1 PO; DUONEB 2.5-0.5 M3 ML AEROSOL; FAMOTIDINE20 MG PO; FLOMAX0.4 MG PO; GUAIFENESIN DM236 ML PO; LASIX40 MG PO; MONTELUKAST SOD10 MG PO; MULTIVITAMIN1 EAC2 PO; PREDNISONE5 MG PO; SPIRIVA RESPIMAT4 GM IH; SPIRIVA1 INHALATI IH; SYMBICORT60 INHALAT IH; TYLENOL WITH C1 EACH PO; VENTOLIN HFA18 GM IH; VITAMIN D31000 UNIT PO; ZYTIGA250 MG PO
[2017-09-18 14:22] LABS: HEMATOCRIT 26.8 % (38.0-50.0); HEMOGLOBIN 8.2 G/DL (12.5-16.6); MCH 33.1 PG (29.0-34.0); MCHC 30.6 G/DL (30.0-36.0); MCV 108.1 FL (86-99); PLATELET COUNT 273 K/uL (156-360); RBC DIS.WIDTH-CV 15.2 % (11.8-14.6); RBC DIS.WIDTH-SD 60.2 % (39-53); RED BLOOD COUNT 2.48 M/uL (4.00-5.50); WHITE BLOOD COUNT 11.2 K/uL (4.1-10.2)
[2017-09-18 14:34] LABS: CHLORIDE 87 mEq/L (99-109); POTASSIUM 5.3 mEq/L (3.7-5.4); SODIUM 132 mEq/L (136-147)
[2017-09-18 14:34] LABS: BASE EXCESS 19.5 mEq/L (-3 to +3); CARBOXY HGB 3.1 % (0-5); METHEMOGLOBIN 0.6 % (0-1.5)
[2017-09-18 14:36] LABS: GLUCOSE 133 mg/dL (70-99)
[2017-09-18 14:36] LABS: BICARBONATE 48.7 mEq/L (22-26); COMMENTS - BLOOD GASES NAC+; PCO2 99 mm Hg (35-45); PO2 90 mm Hg (80-100); SITE RR
[2017-09-18 14:37] LABS: DEVICE 980; FI02 60 %; MECHANICAL RATE 14 resp/min; MODE A/C; TOTAL RESP RATE 14 resp/min
[2017-09-18 14:38] LABS: PEEP 5 CM/H20; TIDAL VOLUME 500 ML
[2017-09-18 14:40] LABS: CREATININE 0.7 mg/dL (0.6-1.3); GFR ESTIMATE (CALCULATED) > 59 mL/min/ (58.99-99999)
[2017-09-18 14:41] LABS: UREA NITROGEN (BUN) 14 mg/dL (9-23)
[2017-09-18 15:00] LABS: ALBUMIN 2.8 g/dL (3.2-4.8); PTT 29.9 SEC (25-37)
[2017-09-18 15:03] LABS: TOTAL PROTEIN 6.1 g/dL (6.4-8.3)
[2017-09-18 15:05] LABS: TOTAL BILIRUBIN 0.3 mg/dL (0.0-1.0)
[2017-09-18 15:06] LABS: ALKALINE PHOSPHATASE 110 IU/L (3-129)
[2017-09-18 15:08] LABS: AST (GOT) 49 IU/L (2-34); DIRECT BILIRUBIN 0.2 mg/dL (0.0-0.3)
[2017-09-18 15:09] LABS: ALT (GPT) 34 IU/L (3-49); LIPASE 5 U/L (1.0-51.0)
[2017-09-18 15:11] LABS: TROP-I INTERPRETATION NEGATIVE; TROPONIN-I < 0.01 ng/mL (0.0-0.30)
[2017-09-18 17:16] LABS: APPEARANCE SL.HAZY ((CLEAR)); BILIRUBIN NEGATIVE; BLOOD NEGATIVE; COLOR YELLOW ((YELLOW)); GLUCOSE (STRIP) 150; KETONES NEGATIVE; LEUKOCYTES NEGATIVE; NITRITE NEGATIVE; PROTEIN (STRIP) NEGATIVE; SPECIFIC GRAVITY 1.045 (1.000-1.030); UROBILINOGEN 0.2 MG/DL (0.2-1.0)
[2017-09-18 17:20] LABS: BACTERIA NONE SEEN /HPF; EPITHELIAL CELLS RARE /HPF; MUCUS NONE SEEN /LPF; RED BLOOD CELLS 0-5 /HPF (0-5); UCUL ADDED? NO; WHITE BLOOD CELLS 0-5 /HPF (0-5)
[2017-09-18 18:27] LABS: CREATINE KINASE 29 IU/L (1-294); TRIGLYCERIDES 46 MG/DL (Normal: <150)
[2017-09-18 18:30] VITALS: BP 138/82
[2017-09-18] MEDS ORDERED: COREG3.125 M1 PO (18:34)
[2017-09-18 18:59] LABS: THYROTROPIN (TSH) 0.82 MIU/L (0.4-5.5)
[2017-09-18 19:00] VITALS: BP 121/62
[2017-09-18 19:38] LABS: BASE EXCESS 17.4 mEq/L (-3 to +3); BICARBONATE 45.1 mEq/L (22-26); CARBOXY HGB 2.1 % (0-5); METHEMOGLOBIN 1.6 % (0-1.5); PO2 81 mm Hg (80-100); pH 7.37 (7.35-7.45)
[2017-09-18 19:39] LABS: COMMENTS - BLOOD GASES A+C+; DEVICE 980VENT; FI02 50 %; MECHANICAL RATE 14 resp/min; MODE ACVC+; PCO2 78 mm Hg (35-45); PEEP 5 CM/H20; SITE RR; TIDAL VOLUME 500 ML; TOTAL RESP RATE 15 resp/min
[2017-09-18 20:00] VITALS: BP 103/55
[2017-09-18 20:44] LABS: BASOPHIL (%) 0.1 % (0-1); EOSINOPHIL (%) 0 % (0-5); HEMATOCRIT 25.8 % (38.0-50.0); HEMOGLOBIN 7.9 G/DL (12.5-16.6); IMMATURE GRANULOCYTE (%) 0.8 % (0.0-0.7); LYMPHOCYTE (%) 2.6 % (15-42); LYMPHOCYTE COUNT 0.2 K/uL (1.0-2.8); MCH 32.9 PG (29.0-34.0); MCHC 30.6 G/DL (30.0-36.0); MCV 107.5 FL (86-99); MONOCYTE (%) 1.6 % (3-12); MONOCYTE COUNT 0.1 K/uL (0-0.8); NEUTROPHIL (%) 94.9 % (45-76); NEUTROPHIL COUNT 8.5 K/uL (1.8-6.4); PLATELET COUNT 251 K/uL (156-360); RBC DIS.WIDTH-CV 15.3 % (11.8-14.6); RBC DIS.WIDTH-SD 59.6 % (39-53); WHITE BLOOD COUNT 8.9 K/uL (4.1-10.2)
[2017-09-18 21:00] VITALS: BP 91/44
[2017-09-18 21:08] LABS: ALBUMIN 2.6 G/DL (3.2-4.8); ALKALINE PHOSPHATASE 84 IU/L (3-129); ALT (GPT) 36 IU/L (3-49); AST (GOT) 41 IU/L (2-34); CHLORIDE 91 MEQ/L (99-109); CREATININE 0.7 MG/DL (0.6-1.3); GFR ESTIMATE (CALCULATED) > 59 mL/min/ (58.99-99999); GLUCOSE 152 mg/dL (70-99); MAGNESIUM 2.1 mg/dl (1.3-2.7); PHOSPHORUS 2.3 mg/dL (2.5-4.9); POTASSIUM 5.4 MEQ/L (3.7-5.4); SODIUM 133 MEQ/L (136-147); TOTAL BILIRUBIN 0.4 MG/DL (0.0-1.0); TOTAL PROTEIN 5.7 G/DL (6.4-8.3); UREA NITROGEN (BUN) 15 mg/dL (9-23)
[2017-09-18 22:00] VITALS: BP 89/45
[2017-09-18 23:41] LABS: BASE EXCESS 19.6 mEq/L (-3 to +3); BICARBONATE 46.5 mEq/L (22-26); CARBOXY HGB 2.1 % (0-5); METHEMOGLOBIN 1.7 % (0-1.5); PO2 70 mm Hg (80-100); pH 7.43 (7.35-7.45)
[2017-09-18 23:42] LABS: COMMENTS - BLOOD GASES A+C+; DEVICE 980VENT; FI02 45 %; MECHANICAL RATE 14 resp/min; MODE ACVC+; PCO2 70 mm Hg (35-45); PEEP 5 CM/H20; SITE RR; TIDAL VOLUME 500 ML; TOTAL RESP RATE 15 resp/min
[2017-09-19] VITALS (12 sets, daily range): BP systolic 95–146; BP diastolic 47–92
[2017-09-19 08:29] LABS: BASOPHIL (%) 0.2 % (0-1); EOSINOPHIL (%) 0 % (0-5); HEMATOCRIT 26.5 % (38.0-50.0); HEMOGLOBIN 8.2 G/DL (12.5-16.6); IMMATURE GRANULOCYTE (%) 0.8 % (0.0-0.7); LYMPHOCYTE (%) 4.8 % (15-42); LYMPHOCYTE COUNT 0.3 K/uL (1.0-2.8); MCH 32.2 PG (29.0-34.0); MCHC 30.9 G/DL (30.0-36.0); MCV 103.9 FL (86-99); MONOCYTE (%) 0.8 % (3-12); MONOCYTE COUNT 0.1 K/uL (0-0.8); NEUTROPHIL (%) 93.4 % (45-76); NEUTROPHIL COUNT 5.8 K/uL (1.8-6.4); PLATELET COUNT 280 K/uL (156-360); RBC DIS.WIDTH-CV 15.4 % (11.8-14.6); RBC DIS.WIDTH-SD 57.7 % (39-53); RED BLOOD COUNT 2.55 M/uL (4.00-5.50); WHITE BLOOD COUNT 6.2 K/uL (4.1-10.2)
[2017-09-19 09:07] LABS: CHLORIDE 93 MEQ/L (99-109); CREATININE 0.7 MG/DL (0.6-1.3); GFR ESTIMATE (CALCULATED) > 59 mL/min/ (58.99-99999); GLUCOSE 163 mg/dL (70-99); POTASSIUM 4.9 MEQ/L (3.7-5.4); SODIUM 139 MEQ/L (136-147); UREA NITROGEN (BUN) 20 mg/dL (9-23)
[2017-09-20] VITALS (12 sets, daily range): BP systolic 91–153; BP diastolic 55–91
[2017-09-20] MEDS ORDERED: LEVAQUIN750 MG PO (14:59)
== END 2017-09-20 15:55 | disposition designated cancer center or children's hospital (05) | DRG 208 ==
LOC: EME 13:46 → EDOF 17:27 → 4WEST 17:27 → ENRESERV 17:28 → 4WEST 19:01
PROVIDERS: Emergency Medicine; Internal Medicine; Obstetrics & Gynecology
PROC: 5A1945Z Respiratory Ventilation, 24-96 Consecutive Hours (ICD-10-PCS; principal; 2017-09-18)
DX: J95.851 Ventilator associated pneumonia (principal); J96.22 Acute and chronic respiratory failure with hypercapnia; Y84.8 Other medical procedures as the cause of abnormal reaction of the patient, or of later complication, without mention of misadventure at the time of the procedure; J44.0 Chronic obstructive pulmonary disease with (acute) lower respiratory infection; J15.1 Pneumonia due to Pseudomonas; Z99.11 Dependence on respirator [ventilator] status; C61 Malignant neoplasm of prostate; C34.90 Malignant neoplasm of unspecified part of unspecified bronchus or lung; Z93.0 Tracheostomy status; I48.91 Unspecified atrial fibrillation; I10 Essential (primary) hypertension; E87.2 Acidosis; J44.1 Chronic obstructive pulmonary disease with (acute) exacerbation; Z87.891 Personal history of nicotine dependence; B96.5 Pseudomonas (aeruginosa) (mallei) (pseudomallei) as the cause of diseases classified elsewhere; C79.51 Secondary malignant neoplasm of bone
CPT/HCPCS: 36600; 70450; 71045; 71046; 71260; 72125; 74177; 80048; 80053; 81003; 82140; 82248; 82330; 82550; 82803; 82948; 83605; 83690; 83735; 83880; 83930; 83935; 84100; 84145 90; 84300; 84443; 84478; 84484; 85025; 85027; 85610; 85730; 86141; 87040; 87070; 87077; 87081; 87186; 87205; 87502; 87641; 93005; 94002; 94003; 94640; 94640 76; 97530 GO; 99281; 99285; J1644; J1815; J2543; J2930; J3370; J7040; J7050

== ENCOUNTER 2018-01-24 11:12 | Inpatient (IN) | payer OTHER, MEDICARE ==
[2018-01-24] VITALS (7 sets, daily range): BP systolic 100–155; BP diastolic 57–88
[~2018-01-24] VITALS: Ht 177.8 cm; Wt 76.7 kg
[~2018-01-24 11:12] MED LIST changes: +LEVAQUIN750 MG PO
[2018-01-24 11:35] LABS: HEMATOCRIT 33.8 % (38.0-50.0); HEMOGLOBIN 11.1 G/DL (12.5-16.6); MCH 32.1 PG (29.0-34.0); MCHC 32.8 G/DL (30.0-36.0); MCV 97.7 FL (86-99); PLATELET COUNT 206 K/uL (156-360); RBC DIS.WIDTH-CV 14.7 % (11.8-14.6); RBC DIS.WIDTH-SD 52.2 % (39-53); RED BLOOD COUNT 3.46 M/uL (4.00-5.50); WHITE BLOOD COUNT 7.5 K/uL (4.1-10.2)
[2018-01-24 11:44] LABS: CHLORIDE 97 mEq/L (99-109); POTASSIUM 3.2 mEq/L (3.7-5.4); SODIUM 143 mEq/L (136-147)
[2018-01-24 11:45] LABS: GLUCOSE 144 mg/dL (70-99)
[2018-01-24 11:49] LABS: CREATININE 1.1 mg/dL (0.6-1.3); GFR ESTIMATE (CALCULATED) > 59 mL/min/ (58.99-99999)
[2018-01-24 11:50] LABS: UREA NITROGEN (BUN) 18 mg/dL (9-23)
[2018-01-24 11:55] LABS: TROP-I INTERPRETATION NEGATIVE; TROPONIN-I < 0.01 ng/mL (0.0-0.30)
[2018-01-24] MEDS ORDERED: PREDNISONE50 MG PO (13:15)
[2018-01-24 14:57] LABS: COMMENTS - BLOOD GASES C+; O2 FLOW 6 L/MIN; SITE LR
[2018-01-24 14:58] LABS: DEVICE NC; O2 SATURATION (CALCULATED) 96.5 % (95-99); PCO2 64 mm Hg (35-45); PO2 77 mm Hg (80-100); TOTAL RESP RATE 20 resp/min; pH 7.42 (7.35-7.45)
[2018-01-24 14:59] LABS: BASE EXCESS 14.4 mEq/L (-3 to +3); BICARBONATE 41.5 mEq/L (22-26); CARBOXY HGB 1.3 % (0-5); METHEMOGLOBIN 0.6 % (0-1.5)
[2018-01-24] MEDS ORDERED: COREG3.125 M1 PO (19:15)
[2018-01-24 19:23] LABS: TROP-I INTERPRETATION NEGATIVE; TROPONIN-I 0.02 ng/mL (0.0-0.30)
[2018-01-25] VITALS (23 sets, daily range): BP systolic 104–170; BP diastolic 56–94
[2018-01-25 01:04] LABS: TROP-I INTERPRETATION NEGATIVE; TROPONIN-I 0.02 ng/mL (0.0-0.30)
[2018-01-25] MEDS ORDERED: PREDNISONE5 MG PO (02:17)
[2018-01-25] MEDS ORDERED: DULCOLAX10 MG PR (02:22)
[2018-01-25] MEDS ORDERED: POLYSPORIN EYE3.5 GM BOTH EYES (02:24)
[2018-01-25] MEDS ORDERED: SEROQUEL100 MG PO (02:25)
[2018-01-25] MEDS ORDERED: FERROCITE324 MG PO (02:26)
[2018-01-25 05:52] LABS: HEMATOCRIT 33.2 % (38.0-50.0); HEMOGLOBIN 10.6 G/DL (12.5-16.6); MCH 31.2 PG (29.0-34.0); MCHC 31.9 G/DL (30.0-36.0); MCV 97.6 FL (86-99); PLATELET COUNT 205 K/uL (156-360); RBC DIS.WIDTH-CV 14.9 % (11.8-14.6); RBC DIS.WIDTH-SD 53.9 % (39-53); WHITE BLOOD COUNT 5.3 K/uL (4.1-10.2)
[2018-01-25 06:18] LABS: CHLORIDE 97 MEQ/L (99-109); GFR ESTIMATE (CALCULATED) > 59 mL/min/ (58.99-99999); SODIUM 141 MEQ/L (136-147); UREA NITROGEN (BUN) 18 mg/dL (9-23)
[2018-01-25 06:21] LABS: GLUCOSE 242 mg/dL (70-99); POTASSIUM 4.5 MEQ/L (3.7-5.4)
[2018-01-25 09:21] LABS: APPEARANCE SL.HAZY ((CLEAR)); BILIRUBIN NEGATIVE; BLOOD NEGATIVE; COLOR YELLOW ((YELLOW)); GLUCOSE (STRIP) >=500; KETONES NEGATIVE; LEUKOCYTES MODERATE; NITRITE NEGATIVE; PROTEIN (STRIP) NEGATIVE; SPECIFIC GRAVITY 1.017 (1.000-1.030); UROBILINOGEN 0.2 MG/DL (0.2-1.0)
[2018-01-25 09:34] LABS: BACTERIA RARE /HPF; EPITHELIAL CELLS RARE /HPF; MUCUS TRACE /LPF; WHITE BLOOD CELLS TNTC /HPF (0-5)
[2018-01-26] VITALS (14 sets, daily range): BP systolic 102–132; BP diastolic 54–103
[2018-01-26 05:47] LABS: BASOPHIL (%) 0.2 % (0-1); EOSINOPHIL (%) 0 % (0-5); HEMATOCRIT 30.8 % (38.0-50.0); HEMOGLOBIN 10.1 G/DL (12.5-16.6); LYMPHOCYTE (%) 9.3 % (15-42); LYMPHOCYTE COUNT 0.8 K/uL (1.0-2.8); MCH 31.9 PG (29.0-34.0); MCHC 32.8 G/DL (30.0-36.0); MCV 97.2 FL (86-99); MONOCYTE (%) 8.9 % (3-12); MONOCYTE COUNT 0.7 K/uL (0-0.8); NEUTROPHIL (%) 80.6 % (45-76); NEUTROPHIL COUNT 6.6 K/uL (1.8-6.4); PLATELET COUNT 194 K/uL (156-360); RBC DIS.WIDTH-CV 14.8 % (11.8-14.6); RBC DIS.WIDTH-SD 53.1 % (39-53); RED BLOOD COUNT 3.17 M/uL (4.00-5.50); WHITE BLOOD COUNT 8.2 K/uL (4.1-10.2)
[2018-01-26 06:04] LABS: ALBUMIN 2.8 G/DL (3.2-4.8); ALKALINE PHOSPHATASE 82 IU/L (3-129); ALT (GPT) 12 IU/L (3-49); AST (GOT) 11 IU/L (2-34); CHLORIDE 97 MEQ/L (99-109); CREATININE 0.8 MG/DL (0.6-1.3); GFR ESTIMATE (CALCULATED) > 59 mL/min/ (58.99-99999); GLUCOSE 172 mg/dL (70-99); POTASSIUM 3.7 MEQ/L (3.7-5.4); SODIUM 139 MEQ/L (136-147); TOTAL PROTEIN 5.9 G/DL (6.4-8.3); UREA NITROGEN (BUN) 16 mg/dL (9-23)
[2018-01-26 06:26] LABS: TOTAL BILIRUBIN 0.2 MG/DL (0.0-1.0)
[2018-01-27] VITALS (9 sets, daily range): BP systolic 98–129; BP diastolic 60–73
[2018-01-27 08:33] LABS: HEMATOCRIT 35.2 % (38.0-50.0); HEMOGLOBIN 10.8 G/DL (12.5-16.6); MCH 31.4 PG (29.0-34.0); MCHC 30.7 G/DL (30.0-36.0); PLATELET COUNT 206 K/uL (156-360); RBC DIS.WIDTH-CV 15.3 % (11.8-14.6); RBC DIS.WIDTH-SD 56.4 % (39-53); RED BLOOD COUNT 3.44 M/uL (4.00-5.50); WHITE BLOOD COUNT 6.8 K/uL (4.1-10.2)
[2018-01-27 08:35] LABS: MCV 102.3 FL (86-99)
[2018-01-27 08:59] LABS: CHLORIDE 100 MEQ/L (99-109); CREATININE 1.1 MG/DL (0.6-1.3); GFR ESTIMATE (CALCULATED) > 59 mL/min/ (58.99-99999); GLUCOSE 126 mg/dL (70-99); SODIUM 144 MEQ/L (136-147); UREA NITROGEN (BUN) 15 mg/dL (9-23)
[2018-01-27 09:00] LABS: POTASSIUM 4.7 MEQ/L (3.7-5.4)
[2018-01-28 00:01] VITALS: BP 101/55
[2018-01-28 02:01] VITALS: BP 102/52
[2018-01-28 04:01] VITALS: BP 119/59
[2018-01-28 06:01] VITALS: BP 111/56
[2018-01-28 06:04] LABS: BASOPHIL (%) 0.5 % (0-1); EOSINOPHIL (%) 0.6 % (0-5); HEMATOCRIT 32.9 % (38.0-50.0); HEMOGLOBIN 10.4 G/DL (12.5-16.6); IMMATURE GRANULOCYTE (%) 2.4 % (0.0-0.7); LYMPHOCYTE (%) 15.3 % (15-42); MCH 31.8 PG (29.0-34.0); MCHC 31.6 G/DL (30.0-36.0); MCV 100.6 FL (86-99); MONOCYTE (%) 11.2 % (3-12); MONOCYTE COUNT 0.7 K/uL (0-0.8); NEUTROPHIL COUNT 4.4 K/uL (1.8-6.4); PLATELET COUNT 201 K/uL (156-360); RBC DIS.WIDTH-CV 15.4 % (11.8-14.6); RED BLOOD COUNT 3.27 M/uL (4.00-5.50); WHITE BLOOD COUNT 6.3 K/uL (4.1-10.2)
[2018-01-28 06:19] LABS: ALBUMIN 2.8 G/DL (3.2-4.8); ALKALINE PHOSPHATASE 77 IU/L (3-129); ALT (GPT) 11 IU/L (3-49); AST (GOT) 11 IU/L (2-34); CHLORIDE 96 MEQ/L (99-109); CREATININE 0.9 MG/DL (0.6-1.3); GFR ESTIMATE (CALCULATED) > 59 mL/min/ (58.99-99999); GLUCOSE 154 mg/dL (70-99); SODIUM 138 MEQ/L (136-147); TOTAL BILIRUBIN 0.2 MG/DL (0.0-1.0); TOTAL PROTEIN 5.7 G/DL (6.4-8.3); UREA NITROGEN (BUN) 17 mg/dL (9-23)
[2018-01-28] MEDS ORDERED: JANUVIA100 MG PO (07:55)
[2018-01-28] MEDS ORDERED: LEVAQUIN750 MG PO (07:55)
[2018-01-28] MEDS ORDERED: VENTOLIN HFA18 GM IH (07:55)
[2018-01-28] MEDS ORDERED: DULERA 200 MCG/13 GM IH (07:55)
[2018-01-28 08:01] VITALS: BP 119/57
[2018-01-28 10:01] VITALS: BP 104/60
== END 2018-01-28 13:52 | disposition home health service (06) | DRG 208 ==
LOC: EME 11:12 → EDOF 15:09 → 4WEST 15:09 → ENRESERV 15:11 → CANRESERV 15:52 → EDOF 16:08 → ENRESERV 16:10 → CANRESERV 16:10 → ENRESERV 16:49 → 4WEST 16:55
PROVIDERS: Emergency Medicine; Hospitalist; Internal Medicine
PROC: 5A1945Z Respiratory Ventilation, 24-96 Consecutive Hours (ICD-10-PCS; principal; 2018-01-24)
DX: J44.1 Chronic obstructive pulmonary disease with (acute) exacerbation (principal); J96.21 Acute and chronic respiratory failure with hypoxia; J96.22 Acute and chronic respiratory failure with hypercapnia; Z99.11 Dependence on respirator [ventilator] status; Z93.0 Tracheostomy status; Z99.81 Dependence on supplemental oxygen; E11.65 Type 2 diabetes mellitus with hyperglycemia; T38.0X5A Adverse effect of glucocorticoids and synthetic analogues, initial encounter; D64.9 Anemia, unspecified; I10 Essential (primary) hypertension; J98.11 Atelectasis; I48.91 Unspecified atrial fibrillation; Z87.891 Personal history of nicotine dependence; Z91.19 Patient's noncompliance with other medical treatment and regimen; Z85.118 Personal history of other malignant neoplasm of bronchus and lung; Z85.46 Personal history of malignant neoplasm of prostate; Z79.82 Long term (current) use of aspirin; Z79.51 Long term (current) use of inhaled steroids; Z60.2 Problems related to living alone
CPT/HCPCS: 36600; 71046; 71275; 80048; 80053; 80061; 81003; 82948; 83036; 83880; 84484; 85025; 85027; 85379; 87070; 87077; 87081; 87186; 87205; 87641; 93005; 94002; 94003; 94640; 94760; 94799; 99281; 99284; J0456; J0692; J1644; J1815; J2920; J7512

== ENCOUNTER 2018-02-19 09:52 | Inpatient (IN) | payer OTHER, MEDICARE ==
[~2018-02-19] VITALS: Ht 175.3 cm; Wt 71.1 kg
[~2018-02-19 09:52] MED LIST changes: +DULCOLAX10 MG PR; +DULERA 200 MCG/13 GM IH; +FERROCITE324 MG PO; +JANUVIA100 MG PO; +POLYSPORIN EYE3.5 GM BOTH EYES; +PREDNISONE50 MG PO; +SEROQUEL100 MG PO
[2018-02-19 11:40] LABS: BASOPHIL (%) 0.3 % (0-1); EOSINOPHIL (%) 1.8 % (0-5); EOSINOPHIL COUNT 0.1 K/uL (0-0.3); HEMOGLOBIN 10.2 G/DL (12.5-16.6); LYMPHOCYTE (%) 12.3 % (15-42); LYMPHOCYTE COUNT 0.9 K/uL (1.0-2.8); MCH 32.5 PG (29.0-34.0); MCHC 32.9 G/DL (30.0-36.0); MCV 98.7 FL (86-99); MONOCYTE COUNT 0.9 K/uL (0-0.8); NEUTROPHIL (%) 72.6 % (45-76); NEUTROPHIL COUNT 5.2 K/uL (1.8-6.4); PLATELET COUNT 199 K/uL (156-360); RBC DIS.WIDTH-CV 14.1 % (11.8-14.6); RED BLOOD COUNT 3.14 M/uL (4.00-5.50); WHITE BLOOD COUNT 7.2 K/uL (4.1-10.2)
[2018-02-19 11:52] LABS: CHLORIDE 91 mEq/L (99-109); POTASSIUM 2.9 mEq/L (3.7-5.4); SODIUM 140 mEq/L (136-147)
[2018-02-19 11:54] LABS: GLUCOSE 112 mg/dL (70-99)
[2018-02-19 11:58] LABS: CREATININE 1.1 mg/dL (0.6-1.3); GFR ESTIMATE (CALCULATED) > 59 mL/min/ (58.99-99999); UREA NITROGEN (BUN) 14 mg/dL (9-23)
[2018-02-19 14:17] LABS: TROP-I INTERPRETATION NEGATIVE; TROPONIN-I 0.01 ng/mL (0.0-0.30)
[2018-02-19] MEDS ORDERED: PREDNISONE10 MG PO (15:53)
[2018-02-19] MEDS ORDERED: LEVOFLOXACIN500 MG PO (15:53)
[2018-02-19] MEDS ORDERED: PERFOROMIS20 MCG/2 M IH (15:53)
[2018-02-19] MEDS ORDERED: IPRATROPIU0.2 MG/1 M IH (15:54)
[2018-02-19] MEDS ORDERED: QUETIAPINE FUM100 MG PO (15:54)
[2018-02-19 22:00] VITALS: BP 131/68
[2018-02-20] VITALS (11 sets, daily range): BP systolic 106–160; BP diastolic 55–92
[2018-02-20 10:42] LABS: BASOPHIL (%) 0.2 % (0-1); EOSINOPHIL (%) 0 % (0-5); HEMATOCRIT 30.2 % (38.0-50.0); IMMATURE GRANULOCYTE (%) 0.7 % (0.0-0.7); LYMPHOCYTE (%) 9.4 % (15-42); LYMPHOCYTE COUNT 0.5 K/uL (1.0-2.8); MCH 32.6 PG (29.0-34.0); MCHC 33.1 G/DL (30.0-36.0); MCV 98.4 FL (86-99); MONOCYTE (%) 4.3 % (3-12); MONOCYTE COUNT 0.2 K/uL (0-0.8); NEUTROPHIL (%) 85.4 % (45-76); NEUTROPHIL COUNT 4.8 K/uL (1.8-6.4); PLATELET COUNT 192 K/uL (156-360); RBC DIS.WIDTH-SD 50.6 % (39-53); RED BLOOD COUNT 3.07 M/uL (4.00-5.50); WHITE BLOOD COUNT 5.6 K/uL (4.1-10.2)
[2018-02-20 10:54] LABS: CHLORIDE 95 MEQ/L (99-109); SODIUM 140 MEQ/L (136-147)
[2018-02-20 10:59] LABS: CREATININE 1.1 MG/DL (0.6-1.3); GFR ESTIMATE (CALCULATED) > 59 mL/min/ (58.99-99999); UREA NITROGEN (BUN) 15 mg/dL (9-23)
[2018-02-20 11:03] LABS: GLUCOSE 218 mg/dL (70-99); POTASSIUM 3.6 MEQ/L (3.7-5.4)
[2018-02-21] VITALS (21 sets, daily range): BP systolic 105–140; BP diastolic 55–85
[2018-02-21 05:26] LABS: BASOPHIL (%) 0 % (0-1); EOSINOPHIL (%) 0 % (0-5); HEMATOCRIT 29.9 % (38.0-50.0); HEMOGLOBIN 9.7 G/DL (12.5-16.6); IMMATURE GRANULOCYTE (%) 0.6 % (0.0-0.7); LYMPHOCYTE (%) 5.7 % (15-42); LYMPHOCYTE COUNT 0.5 K/uL (1.0-2.8); MCH 31.9 PG (29.0-34.0); MCHC 32.4 G/DL (30.0-36.0); MCV 98.4 FL (86-99); MONOCYTE COUNT 0.3 K/uL (0-0.8); NEUTROPHIL (%) 90.7 % (45-76); NEUTROPHIL COUNT 8.2 K/uL (1.8-6.4); PLATELET COUNT 209 K/uL (156-360); RBC DIS.WIDTH-SD 51.1 % (39-53); RED BLOOD COUNT 3.04 M/uL (4.00-5.50)
[2018-02-21 05:42] LABS: CHLORIDE 98 MEQ/L (99-109); CREATININE 1.2 MG/DL (0.6-1.3); GFR ESTIMATE (CALCULATED) > 59 mL/min/ (58.99-99999); GLUCOSE 188 mg/dL (70-99); POTASSIUM 4.1 MEQ/L (3.7-5.4); SODIUM 141 MEQ/L (136-147); UREA NITROGEN (BUN) 16 mg/dL (9-23)
[2018-02-22] VITALS (13 sets, daily range): BP systolic 87–151; BP diastolic 52–88
[2018-02-23] VITALS (15 sets, daily range): BP systolic 101–137; BP diastolic 58–81
[2018-02-24] VITALS (13 sets, daily range): BP systolic 96–132; BP diastolic 58–75
[2018-02-24] MEDS ORDERED: NOVOLOG 10100 UNITS/ SC (12:18)
[2018-02-24] MEDS ORDERED: SANTYL30 GM TP (12:18)
[2018-02-24] MEDS ORDERED: PREDNISONE5 MG PO (12:19)
== END 2018-02-24 15:21 | DRG 167 ==
LOC: EME 09:52 → EDOF 15:18 → 4WEST 15:18 → ENRESERV 15:23 → CANRESERV 17:24 → ENRESERV 17:24 → 4WEST 22:00 → ENRESERV 02-20 20:04 → CANRESERV 02-20 20:04 → 4WEST 02-24 15:21
PROVIDERS: Emergency Medicine; Hospitalist; Student in an Organized Health Care Education/Training Program
PROC: 5A1935Z Respiratory Ventilation, Less than 24 Consecutive Hours (ICD-10-PCS; principal; 2018-02-19)
PROC: 0JBQ0ZZ Excision of Right Foot Subcutaneous Tissue and Fascia, Open Approach (ICD-10-PCS; 2018-02-24)
DX: J96.21 Acute and chronic respiratory failure with hypoxia (principal); J44.1 Chronic obstructive pulmonary disease with (acute) exacerbation; L89.610 Pressure ulcer of right heel, unstageable; L89.320 Pressure ulcer of left buttock, unstageable; L89.310 Pressure ulcer of right buttock, unstageable; I48.0 Paroxysmal atrial fibrillation; D64.9 Anemia, unspecified; I10 Essential (primary) hypertension; Z99.11 Dependence on respirator [ventilator] status; Z93.0 Tracheostomy status; Z93.1 Gastrostomy status; Z95.0 Presence of cardiac pacemaker; Z95.810 Presence of automatic (implantable) cardiac defibrillator; Z79.82 Long term (current) use of aspirin; Z87.891 Personal history of nicotine dependence; Z85.46 Personal history of malignant neoplasm of prostate; Z22.322 Carrier or suspected carrier of Methicillin resistant Staphylococcus aureus
CPT/HCPCS: 71045; 73630; 80048; 80202; 82948; 83605; 84484; 85025; 87040; 87070; 87205; 87641; 93005; 94002; 94003; 94640; 94760; 94799; 97530 GO; 99281; 99285; A6214; J1650; J1815; J2543; J2930; J3370; J3480; J7050; J7512